=== PATIENT | male | born 1965 | race Caucasian/White ===

== ENCOUNTER 2019-04-28 11:58 | Emergency (ER) | payer OTHER ==
[~2019-04-28] VITALS: Ht 185.4 cm; Wt 77.1 kg
[2019-04-28 12:02] VITALS: BP 134/77
[2019-04-28] MEDS ORDERED: HYDROCODONE/APAP 5/325MG 1 EACH TABLET PO ONE (12:30)
[2019-04-28] MEDS ORDERED: IBUPROFEN 600 MG TABLET PO ONE ×2 (12:30→12:42)
[2019-04-28] MEDS ORDERED: HYDROCODONE/APAP 5/325MG 1 EACH TABLET ONE (12:42)
== END 2019-04-28 12:49 | disposition home or self-care (01) ==
LOC: ER 11:58
DX: G89.29 Other chronic pain (principal); K02.9 Dental caries, unspecified; K00.7 Teething syndrome; E11.9 Type 2 diabetes mellitus without complications

== ENCOUNTER 2021-01-20 01:54 | Emergency (ER) | payer OTHER ==
[~2021-01-20] VITALS: Ht 185.4 cm; Wt 90.7 kg
[2021-01-20 02:23] VITALS: BP 168/76
[2021-01-20] MEDS ORDERED: KETOROLAC TROMETHAMINE INJ 60 MG/2 ML VIAL IM ONE (03:30)
[2021-01-20] MEDS ORDERED: HYDROMORPHONE 1 MG/1 ML DISP.SYRIN IV ONE (04:00)
[2021-01-20] MEDS ORDERED: HYDROMORPHONE INJ 2 MG/ML DISP.SYRIN ONE (04:22)
--- NOTE | 2021-01-20 04:28 | NUR ---
VERBAL ORDER TO CHANGE 0.5MG DILAUDID FROM IVP TO IM. NOTED AND CARRIED OUT
--- NOTE | 2021-01-20 05:59 | NUR ---
Patient discharged to home in stable condition. Written and verbal after care instructions given. Patient verbalizes understanding of instruction.
== END 2021-01-20 05:59 | disposition home or self-care (01) ==
LOC: ER 01:54
DX: G89.29 Other chronic pain (principal); M54.9 Dorsalgia, unspecified; I10 Essential (primary) hypertension; E11.9 Type 2 diabetes mellitus without complications
CPT/HCPCS: 96374; 99283; J1170

== ENCOUNTER 2021-03-31 01:34 | Emergency (ER) | payer OTHER ==
[~2021-03-31] VITALS: Ht 185.4 cm; Wt 81.6 kg
--- NOTE | 2021-03-31 02:47 | NUR ---
PATIENT BIBS C/O LEFT BIG TOE PAIN WITH HX OF GOUT X2DAYS. PATIENT ALERT AND ORIENTED X3. AMBULATORY WITH NON LABORED BREATHING.
[2021-03-31] MEDS ORDERED: INDOMETHACIN 25 MG CAPSULE ONE (03:26)
[2021-03-31] MEDS ORDERED: HYDROCODONE/APAP 5/325MG TABLET ONE (03:26)
[2021-03-31] MEDS ORDERED: INDOMETHACIN 25 MG CAPSULE PO ONE ×2 (03:30)
[2021-03-31] MEDS ORDERED: HYDROCODONE/APAP 5/325MG TABLET PO ONE (03:30)
[2021-03-31 03:51] VITALS: BP 139/79
[2021-03-31] MEDS ORDERED: INDO50CA92 PO (04:12)
[2021-03-31] MEDS ORDERED: oxyCODONE/APAP (5/325 MG) 1 UDTAB TABLET ONE (04:19)
[2021-03-31] MEDS ORDERED: oxyCODONE/APAP (5/325 MG) 1 UDTAB TABLET PO ONE (04:30)
--- NOTE | 2021-03-31 04:33 | NUR ---
Patient discharged to home in stable condition. RX Written and verbal after care instructions given. Patient verbalizes understanding of instruction. PT ambulatory with a steady gait
== END 2021-03-31 04:38 | disposition home or self-care (01) ==
LOC: ER 01:52
DX: M10.9 Gout, unspecified (principal); M79.675 Pain in left toe(s); I10 Essential (primary) hypertension; E11.9 Type 2 diabetes mellitus without complications; Z79.899 Other long term (current) drug therapy